=== PATIENT | female | born 1945 | race Two or more races ===

== ENCOUNTER 2020-03-18 08:22 | Day surgery (SDC) | payer OTHER | END 2020-03-18 13:20 | disposition home or self-care (01) | LOC: AMB-ENDOS 08:22 | PROVIDERS: ATTEND Colon & Rectal Surgery | DX: K62.89 Other specified diseases of anus and rectum (principal); K64.1 Second degree hemorrhoids; Z20.828 Contact with and (suspected) exposure to other viral communicable diseases ==

== ENCOUNTER 2020-04-13 09:45 | Outpatient (CLI) | payer OTHER ==
[2020-04-13] MEDS ORDERED: LANTUS (14:06)
[2020-04-13] MEDS ORDERED: SYNTHROID75 MCG PO (14:07)
== END 2020-04-13 09:49 | disposition home or self-care (01) ==
LOC: RX STUDY 09:45
PROVIDERS: ATTEND Colon & Rectal Surgery
DX: R93.3 Abnormal findings on diagnostic imaging of other parts of digestive tract (principal)

== ENCOUNTER 2020-04-13 11:15 | Inpatient (IN) | payer OTHER ==
[~2020-04-13] VITALS: Ht 157.5 cm; Wt 73.9 kg
[2020-04-13] MEDS ORDERED: LANTUS (14:06)
[2020-04-13] MEDS ORDERED: SYNTHROID75 MCG PO (14:07)
[2020-05-18] MEDS ORDERED: SYNTHROID75 MCG PO (09:59)
[2020-05-18] MEDS ORDERED: POLY119PG PO (09:59)
[2020-05-18] MEDS ORDERED: LANTUS SOL100 UNIT/1 SUBCUTANEO (09:59)
[2020-05-18] MEDS ORDERED: XARELTO20 M1 PO (09:59)
[2020-05-18] MEDS ORDERED: PEPCID AC20 MG PO (09:59)
[2020-05-18] MEDS ORDERED: XARELTO15 MG PO (09:59)
[2020-05-18] MEDS ORDERED: INTESTINEX680 M1 PO (09:59)
== END 2020-05-18 18:56 | disposition home or self-care (01) | DRG 329 ==
LOC: SURH 04-20 07:00 → O/R 04-20 11:25 → SURH 04-20 20:16 → ICU 05-04 21:55 → SURH 05-12 19:10 → ICU 05-12 20:02 → SURH 05-12 22:28
PROVIDERS: ADMIT Colon & Rectal Surgery; ATTEND Colon & Rectal Surgery
PROC: 0DSB4ZZ Reposition Ileum, Percutaneous Endoscopic Approach (ICD-10-PCS; principal; 2020-04-20 07:00)
PROC: 0DNN0ZZ Release Sigmoid Colon, Open Approach (ICD-10-PCS; 2020-04-30)
PROC: 4A12X4Z Monitoring of Cardiac Electrical Activity, External Approach (ICD-10-PCS; 2020-05-01)
PROC: 0BH17EZ Insertion of Endotracheal Airway into Trachea, Via Natural or Artificial Opening (ICD-10-PCS; 2020-05-03)
PROC: 5A1955Z Respiratory Ventilation, Greater than 96 Consecutive Hours (ICD-10-PCS; 2020-05-03)
PROC: 02HV33Z Insertion of Infusion Device into Superior Vena Cava, Percutaneous Approach (ICD-10-PCS; 2020-05-04)
PROC: 3E0436Z Introduction of Nutritional Substance into Central Vein, Percutaneous Approach (ICD-10-PCS; 2020-05-04)
PROC: 4A033R1 Measurement of Arterial Saturation, Peripheral, Percutaneous Approach (ICD-10-PCS; 2020-05-04)
PROC: 8E0ZXY6 Isolation (ICD-10-PCS; 2020-05-04)
PROC: 30233N1 Transfusion of Nonautologous Red Blood Cells into Peripheral Vein, Percutaneous Approach (ICD-10-PCS; 2020-05-06)
DX: Z43.3 Encounter for attention to colostomy (principal); J69.0 Pneumonitis due to inhalation of food and vomit; I26.99 Other pulmonary embolism without acute cor pulmonale; J96.01 Acute respiratory failure with hypoxia; I46.8 Cardiac arrest due to other underlying condition; R18.8 Other ascites; J98.11 Atelectasis; K56.7 Ileus, unspecified; K56.51 Intestinal adhesions [bands], with partial obstruction; I97.121 Postprocedural cardiac arrest following other surgery; T81.41XA Infection following a procedure, superficial incisional surgical site, initial encounter; Z16.12 Extended spectrum beta lactamase (ESBL) resistance; Z85.43 Personal history of malignant neoplasm of ovary; D50.9 Iron deficiency anemia, unspecified; E11.65 Type 2 diabetes mellitus with hyperglycemia; Y83.8 Other surgical procedures as the cause of abnormal reaction of the patient, or of later complication, without mention of misadventure at the time of the procedure; B96.29 Other Escherichia coli [E. coli] as the cause of diseases classified elsewhere; Z74.01 Bed confinement status; Z20.828 Contact with and (suspected) exposure to other viral communicable diseases

== ENCOUNTER 2020-06-25 13:47 | Emergency (ER) | payer OTHER ==
[~2020-06-25] VITALS: Ht 154.9 cm; Wt 68.0 kg
[~2020-06-25 13:47] MED LIST: INTESTINEX680 M1 PO; LANTUS; LANTUS SOL100 UNIT/1 SUBCUTANEO; PEPCID AC20 MG PO; POLY119PG PO; SYNTHROID75 MCG PO; XARELTO15 MG PO; XARELTO20 M1 PO
[2020-06-25] MEDS ORDERED: PEPCID AC20 MG PO (22:32)
== END 2020-06-25 23:51 | disposition home or self-care (01) ==
LOC: ER 13:47
DX: R10.13 Epigastric pain (principal); Z03.818 Encounter for observation for suspected exposure to other biological agents ruled out